=== PATIENT | female | born 1940 | race Caucasian/White ===

== ENCOUNTER 2023-06-19 19:22 | Emergency (ER) | payer MEDICARE, SELFPAY ==
[2023-06-19 19:24] VITALS: BP 116/84
[2023-06-19 19:37] VITALS: BMI 19.1
[2023-06-19 19:46] VITALS: BP 145/92
[2023-06-19 20:00] VITALS: BP 138/101
--- NOTE | 2023-06-19 20:09 | ED.SKININJ ---
HPI-Injury
<JOHNNY Mckeon - Last Filed: 06/20/23 03:03>
General
Chief Complaint: Skin Surface Trauma
Source: patient
Exam Limitations: none
Time Seen by Provider: 06/19/23 19:32
Travel History
Have you had any contact with someone who has COVID-19?: No
Do you have any symptoms of coronavirus? Fever > 100 degrees, chills, cough, shortness of breath, sore throat, loss of taste or smell, muscle aches, or headache?: No
History of Present Illness-Injury
Is this injury a work related problem?: No
Is pt an associate of [facility]?: No
Initial Injury comments:
This is a 83 year old female that comes in with c/o laceration to the right lower leg. States that the bifold doors came off it track and the door came down on the right lower leg. States that she did not fall and she did not hit her head or have
any LOC. Denies any fever, chills, chest pain, SOB, abd pain, nausea, vomiting, diarrhea, headache, dizziness, urinary burning.
Past History
<JOHNNY Mckeon - Last Filed: 06/20/23 03:03>
Past History
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
ED Past Surgical History: Cardiac (Ablation), Tonsilectomy and Other (Breast lumpectomy right)
Social History
Tobacco: Non-smoker
Alcohol: Occasional
Personal:
Living: alone
Employment: Retired
Review of Systems
<JOHNNY Mckeon - Last Filed: 06/20/23 03:03>
Review of Systems
All Other Systems: ROS reviewed and negative except as documented in HPI and ROS
Constitutional: Reports no symptoms; Denies fever or chills
EENT: Reports no symptoms
Respiratory: Denies cough or trouble breathing
Cardiac: Reports no symptoms; Denies chest pain
ABD/GI: Reports no symptoms; Denies abdominal pain, nausea, vomiting or diarrhea
: Reports no symptoms; Denies dysuria, frequency or urgency
Musculoskeletal: Reports no symptoms
Skin: Reports no symptoms
Neurological: Reports no symptoms; Denies dizzy or headache
Psychiatric: Reports no symptoms
Skin Exam
<JOHNNY Mckeon - Last Filed: 06/20/23 03:03>
Laceration
Right Lower Anterior Leg:
Length in cm: 10 (10.25 X 8.5)
Orientation: vertical
Any active bleeding?: low grade venous oozing
Distal skin color and temperature: normal-warm & good color
Normal distal neurovascular exam: Yes
Range of motion: full
Phy Exam
<JOHNNY Mckeon - Last Filed: 06/20/23 03:03>
General Physical Exam
General Presentation: well appearing and no apparent distress
General age: appears stated age
General Skin: warm and dry
General Habitus: elderly
General Mental: alert
General Hydration: appears well hydrated
Eye Exam
Eye Exam: EOMI
Musculoskeletal Exam
Musculoskeletal Exam: full ROM and no edema
Skin Exam
Skin Exam: normal color, warm/dry, no rash, no petechia and other (Large laceration/skin tear of the right lower leg with adipose tissue exposed, Fascia appears intact. )
Psychiatric Exam
Psychiatric Exam: normal mood/affect
Course
<JOHNNY Mckeon - Last Filed: 06/20/23 03:03>
Orders/Labs/Results
Orders:
Orders
06/19/23 20:08
Morphine Sulfate 2 mg IV NOW STA
06/19/23 20:09
Tetanus/Diphth/Acelpertussis [Adacel] 0.5 ml IM .ONCE ONE
06/19/23 20:10
Ondansetron Injectable [Zofran] 4 mg .ROUTE .STK-MED ONE
06/19/23 20:12
Ondansetron Injectable [Zofran] 4 mg IV NOW STA
06/19/23 20:24
Doxycycline [Vibramycin] 100 mg PO NOW STA
Vital Signs
Initial and Last Documented VS:
Initial Vital Signs
Temp Pulse Resp BP Pulse Ox
98.3 F 84 24 116/84 96
06/19/23 19:24 06/19/23 19:24 06/19/23 19:24 06/19/23 19:24 06/19/23 19:24
Last Documented Vital Signs
Temp Pulse Resp BP Pulse Ox
98.3 F 78 21 150/90 98
06/19/23 19:24 06/19/23 21:51 06/19/23 21:51 06/19/23 21:51 06/19/23 21:51
<Hieu Silverman, DO - Last Filed: 06/19/23 20:48>
Orders/Labs/Results
Orders:
Orders
06/19/23 20:08
Morphine Sulfate 2 mg IV NOW STA
06/19/23 20:09
Tetanus/Diphth/Acelpertussis [Adacel] 0.5 ml IM .ONCE ONE
06/19/23 20:10
Ondansetron Injectable [Zofran] 4 mg .ROUTE .STK-MED ONE
06/19/23 20:12
Ondansetron Injectable [Zofran] 4 mg IV NOW STA
06/19/23 20:24
Doxycycline [Vibramycin] 100 mg PO NOW STA
Vital Signs
Initial and Last Documented VS:
Initial Vital Signs
Temp Pulse Resp BP Pulse Ox
98.3 F 84 24 116/84 96
06/19/23 19:24 06/19/23 19:24 06/19/23 19:24 06/19/23 19:24 06/19/23 19:24
Last Documented Vital Signs
Temp Pulse Resp BP Pulse Ox
98.3 F 78 21 150/90 98
06/19/23 19:24 06/19/23 21:51 06/19/23 21:51 06/19/23 21:51 06/19/23 21:51
<JOHNNY Mckeon - Last Filed: 06/20/23 03:03>
MDM/Problems Addressed
Differential Diagnosis Includes:
laceration/skin tear
MDM/Problems Addressed:
This is a 83 year old female that had a door fall on the right lower leg.
Explained to patient that her skin is so thin that this can't be sutured as it would continue to rip. This was also seen by Dr. Silverman. Will have patient follow up at the wound care center for further evaluation and treatment. Patient will be given
something for pain a Adacel injection. Patient will use Tylenol 1000mg every 6 hour for pain.
Chronic conditions affecting care:
NA
Acute Exacerbation and/or Progression of Chronic Illness:
NA
<JOHNNY Mckeon - Last Filed: 06/20/23 03:03>
*Pulse Oximetry
Patient hypoxic: no
*EKG
Interpreted by ED Provider?: NA
Rate: EKG- N/A
*Entry Level Electrician Interpretation
Rate: Entry Level Electrician- N/A
*Critical Care Note
Total Time (30-74mins, 75-104mins- exclusive of procedures): Not Applicable
ED Attending Note
<JOHNNY Mckeon - Last Filed: 06/20/23 03:03>
-
Portions of this chart may have been created with voice recognition software.� Occasional wrong word or��sound alike� substitutions may have occurred due to the inherent limitations of voice recognition software.
<Hieu Silverman, DO - Last Filed: 06/19/23 20:48>
ED Attending Note
Patient seen and examined by attending physician: Yes
I performed the substantive portion of visit, reviewed & personally made and approve the management plan that is documented in note by myself or BERNADETTE.: Yes
ED Attending Note:
I have seen and evaluated the patient with a [id number] encounter. I have spoken to the advance practicer provider and involved in the medical history, the physical exam, medical decision making.
Evaluation and management service: agree unless noted differently below.
Results interpretation: agree unless noted differently below.
Focused HPI: 83-year-old female presenting for evaluation of trauma to her right leg. She states a door fell on her right leg.
Physical exam: Large skin avulsion and laceration to anterior right lateral leg. No bony tenderness. Distal extremity neurovascular intact
Medical Decision Making: Due to the very thin skin, she is not a candidate for suturing. Will perform local wound care and have her follow-up with wound care
Discharge Plan
Departure
Patient Disposition: Home (Routine Discharge)
Date of Disposition: 06/19/23
Time of Disposition: 20:21
Patient with high blood pressure during this ER visit?: No
Condition: Good
Covid-19: Not Applicable
Discharge Problem:
Laceration of right lower extremity
Instructions: Wound Care (DC)
Prescriptions:
New
doxycycline hyclate 100 mg capsule
100 mg PO BID Qty: 19 0RF
No Action
calcium citrate-vitamin D3 [Calcium Citrate + D] 1 EACH tablet
1 tab PO DAILY
multivitamin with folic acid [Tab-A-Alannah] 1 TABLET tablet
1 tab PO DAILY
amiodarone 200 mg tablet
200 mg PO QPM
acetaminophen [Tylenol] 325 mg Tablet
650 mg PO Q4HPRN PRN (Reason: mild pain)
atorvastatin 20 mg tablet
20 mg PO QPM
Eliquis 2.5 mg tablet
2.5 mg PO BID
Prevagen
1 cap PO DAILY
sulfamethoxazole-trimethoprim [Bactrim DS] 800-160 mg tablet
1 tab PO BID Qty: 6 0RF
Referrals:
[facility] [Active [facility]] - Tomorrow
Activity Restrictions/Additional Instructions:
As discussed, this laceration is more like a skin tear that has gone into the adipose tissue. Your skin is to thin to be sutured as it will continue to rip. PLEASE FOLLOW UP IN THE WOUND CARE CENTER TOMORROW IF POSSIBLE. PLEASE CALL THE WOUND CARE
CENTER TOMORROW. You have been given your first dose of antibiotic here and a prescription has been sent to your Pharmacy. IF YOU HAVE ANY REDNESS, FEVER, OR YOU HAVE ANY OTHER CONCERNS PLEASE RETURN TO THE EMERGENCY ROOM
Interventions
Interventions:
*Risk Screen - Suicide Last Done: 06/19/23 19:24
*General Assessment Last Done: 06/19/23 19:37
*Neglect/Abuse Screening Last Done: 06/19/23 19:24
ED- Fall Risk Assessment Last Done: 06/19/23 19:37
*ED COVID-19 Vaccine History Last Done: 06/19/23 19:37
*Nursing Disposition Last Done: 06/19/23 21:51
ED-Skin Assessment Last Done: 06/19/23 19:37
Discharge Date and Time
Discharge Date/Time: 06/19/23 21:00
[2023-06-19] MEDS: ZOFRAN 4 MG IV (20:12)
[2023-06-19] MEDS: MORPHINE SULFATE 2 MG IV (20:14)
[2023-06-19] MEDS: ADACEL 0.5 ML IM (20:15)
[2023-06-19] MEDS: VIBRAMYCIN 100 MG PO (20:42)
[2023-06-19 21:51] VITALS: BP 150/90
== END 2023-06-19 21:00 | disposition home or self-care (01) ==
LOC: EMR 19:22
PROVIDERS: EMERGENCY PHYSICIAN Student in an Organized Health Care Education/Training Program; FAMILY PHYSICIAN Family Medicine
DX: S81.811A Laceration without foreign body, right lower leg, initial encounter (principal); W20.8XXA Other cause of strike by thrown, projected or falling object, initial encounter
CPT/HCPCS: 99284; 96374; 96375; 90471; 90715

== ENCOUNTER → 2023-06-23 08:31 | Outpatient (REF) | payer MEDICARE, SELFPAY | LOC: WOUND 08:31 | PROVIDERS: ATTENDING PHYSICIAN Surgery; FAMILY PHYSICIAN Family Medicine | DX: S81.811A Laceration without foreign body, right lower leg, initial encounter (principal); L97.811 Non-pressure chronic ulcer of other part of right lower leg limited to breakdown of skin; Z79.01 Long term (current) use of anticoagulants; I48.19 Other persistent atrial fibrillation; N18.32 Chronic kidney disease, stage 3b; I49.5 Sick sinus syndrome; X58.XXXA Exposure to other specified factors, initial encounter | CPT/HCPCS: 99203 ==

== ENCOUNTER → 2023-06-30 09:55 | Outpatient (REF) | payer MEDICARE, SELFPAY | LOC: WOUND 09:55 | PROVIDERS: ATTENDING PHYSICIAN Surgery; FAMILY PHYSICIAN Family Medicine | DX: N18.32 Chronic kidney disease, stage 3b (principal); S81.811A Laceration without foreign body, right lower leg, initial encounter; L97.812 Non-pressure chronic ulcer of other part of right lower leg with fat layer exposed; Z79.01 Long term (current) use of anticoagulants; I48.19 Other persistent atrial fibrillation; I49.5 Sick sinus syndrome; X58.XXXA Exposure to other specified factors, initial encounter | CPT/HCPCS: 11042; 11045 ==

== ENCOUNTER → 2023-07-07 09:28 | Outpatient (REF) | payer MEDICARE, SELFPAY | LOC: WOUND 09:28 | PROVIDERS: ATTENDING PHYSICIAN Surgery; FAMILY PHYSICIAN Family Medicine | DX: S81.811A Laceration without foreign body, right lower leg, initial encounter (principal); L97.812 Non-pressure chronic ulcer of other part of right lower leg with fat layer exposed; Z79.01 Long term (current) use of anticoagulants; I48.19 Other persistent atrial fibrillation; N18.32 Chronic kidney disease, stage 3b; I49.5 Sick sinus syndrome | CPT/HCPCS: 11042; 11045 ==

== ENCOUNTER → 2023-07-14 09:30 | Outpatient (REF) | payer MEDICARE, SELFPAY | LOC: WOUND 09:30 | PROVIDERS: ATTENDING PHYSICIAN Surgery; FAMILY PHYSICIAN Family Medicine | DX: S81.811A Laceration without foreign body, right lower leg, initial encounter (principal); L97.812 Non-pressure chronic ulcer of other part of right lower leg with fat layer exposed; I48.19 Other persistent atrial fibrillation; N18.32 Chronic kidney disease, stage 3b; I49.5 Sick sinus syndrome; X58.XXXA Exposure to other specified factors, initial encounter; Z79.01 Long term (current) use of anticoagulants | CPT/HCPCS: 99212 ==

== ENCOUNTER → 2023-07-21 09:28 | Outpatient (REF) | payer MEDICARE, SELFPAY | LOC: WOUND 09:28 | PROVIDERS: ATTENDING PHYSICIAN Surgery; FAMILY PHYSICIAN Family Medicine | DX: S81.811A Laceration without foreign body, right lower leg, initial encounter (principal); L97.812 Non-pressure chronic ulcer of other part of right lower leg with fat layer exposed; Z79.01 Long term (current) use of anticoagulants; I48.19 Other persistent atrial fibrillation; N18.32 Chronic kidney disease, stage 3b; I49.5 Sick sinus syndrome; W20.8XXA Other cause of strike by thrown, projected or falling object, initial encounter | CPT/HCPCS: 11042; 11045 ==

== ENCOUNTER → 2023-07-28 09:27 | Outpatient (REF) | payer MEDICARE, SELFPAY | LOC: WOUND 09:27 | PROVIDERS: ATTENDING PHYSICIAN Surgery; FAMILY PHYSICIAN Family Medicine | DX: S81.811A Laceration without foreign body, right lower leg, initial encounter (principal); L97.812 Non-pressure chronic ulcer of other part of right lower leg with fat layer exposed; I48.19 Other persistent atrial fibrillation; N18.32 Chronic kidney disease, stage 3b; I49.5 Sick sinus syndrome; W20.8XXA Other cause of strike by thrown, projected or falling object, initial encounter | CPT/HCPCS: 11042; 11045 ==

== ENCOUNTER → 2023-08-04 09:58 | Outpatient (REF) | payer MEDICARE, SELFPAY | LOC: WOUND 09:58 | PROVIDERS: ATTENDING PHYSICIAN Surgery; FAMILY PHYSICIAN Family Medicine | DX: L97.812 Non-pressure chronic ulcer of other part of right lower leg with fat layer exposed (principal); I48.19 Other persistent atrial fibrillation; S81.811A Laceration without foreign body, right lower leg, initial encounter; N18.32 Chronic kidney disease, stage 3b; I49.5 Sick sinus syndrome; W20.8XXA Other cause of strike by thrown, projected or falling object, initial encounter | CPT/HCPCS: 11042; 11045 ==

== ENCOUNTER → 2023-08-18 09:26 | Outpatient (REF) | payer MEDICARE, SELFPAY | LOC: WOUND 09:26 | PROVIDERS: ATTENDING PHYSICIAN Surgery; FAMILY PHYSICIAN Family Medicine | DX: S81.811A Laceration without foreign body, right lower leg, initial encounter (principal); L97.812 Non-pressure chronic ulcer of other part of right lower leg with fat layer exposed; I48.19 Other persistent atrial fibrillation; N18.32 Chronic kidney disease, stage 3b; I49.5 Sick sinus syndrome; W20.8XXA Other cause of strike by thrown, projected or falling object, initial encounter | CPT/HCPCS: 11042; 11045 ==

== ENCOUNTER → 2023-08-25 09:29 | Outpatient (REF) | payer MEDICARE, SELFPAY | LOC: WOUND 09:29 | PROVIDERS: ATTENDING PHYSICIAN Surgery; FAMILY PHYSICIAN Family Medicine | DX: S81.811A Laceration without foreign body, right lower leg, initial encounter (principal); L97.812 Non-pressure chronic ulcer of other part of right lower leg with fat layer exposed; I48.19 Other persistent atrial fibrillation; N18.32 Chronic kidney disease, stage 3b; L49 Exfoliation due to erythematous conditions according to extent of body surface involved; Z79.01 Long term (current) use of anticoagulants; W20.8XXA Other cause of strike by thrown, projected or falling object, initial encounter | CPT/HCPCS: 11042 ==

== ENCOUNTER 2023-08-30 14:30 | Emergency (ER) | payer MEDICARE, SELFPAY ==
[2023-08-30 14:35] VITALS: BP 115/71
[2023-08-30 14:36] VITALS: BP 115/71
[2023-08-30 14:45] VITALS: BMI 19.1
[2023-08-30 15:00] VITALS: BP 112/74
--- NOTE | 2023-08-30 15:16 | ED.GENMED ---
History of Present Illness
General
Chief Complaint: Fall
Source: patient
Exam Limitations: none
Time Seen by Provider: 08/30/23 14:32
Nursing documentation reviewed up to this point in time: agreed with
Travel History
Have you had any contact with someone who has COVID-19?: No
Do you have any symptoms of coronavirus? Fever > 100 degrees, chills, cough, shortness of breath, sore throat, loss of taste or smell, muscle aches, or headache?: No
History of Present Illness
History of Present Illness:
Patient is a 83-year-old female brought to the ER by EMS. MES reported that pts Blood sugar was 271 (she is not a diabetic ) Patient presents to the ED awake alert oriented x3 in no acute distress able to give full history.
she reports about 11 AM she was taken to walk outside of her house and slipped and fell landing in mud. She denies loss of consciousness. she denies any her head she reports her neighbor saw her and called EMS. She denies headache , denies nausea
/vomiting. She tells me she did land on her knees but denies knee pain.
Daughter at bedside reports she just wanted her to get evaluated. She reports pt is at baseline behavior.
Past History
Past History
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
ED Past Surgical History: Cardiac (Ablation), Tonsilectomy and Other (Breast lumpectomy right)
Social History
Tobacco: Non-smoker
Alcohol: Occasional
Personal:
Living: alone
Employment: Retired
Review of Systems
Review of Systems
Allergies reviewed?: Yes
All Other Systems: ROS reviewed and negative except as documented in HPI and ROS
Constitutional: Reports no symptoms; Denies fever, fatigue or chills
EENT: Reports no symptoms
Respiratory: Reports no symptoms; Denies trouble breathing
Cardiac: Reports no symptoms
ABD/GI: Reports no symptoms; Denies nausea or vomiting
Phy Exam
General Physical Exam
General Presentation: no apparent distress
General age: appears stated age
General Skin: warm and dry
General Habitus: elderly
General Mental: alert
Cardiovascular Exam
Cardiovascular Exam: no murmur and irregularly irregular
Pulmonary Exam
Pulmonary Exam: lungs clear
Neurological Exam
Neurological Exam: alert and oriented x3
Pop Coma Scale
Eye Opening: Spontaneous
Verbal Response: Oriented
Motor Response: Obeys Commands
GCS Total Score: 15
Musculoskeletal Exam
Musculoskeletal Exam: full ROM
Skin Exam
Skin Exam: normal color and warm/dry
Psychiatric Exam
Psychiatric Exam: normal mood/affect
Course
Orders/Labs/Results
Orders:
Orders
08/30/23 15:01
CT Head W/o Iv Contrast Urgent
Comment:
Reason For Exam: trauma
08/30/23 15:02
CT Cervical Spine W/o Iv Contr Urgent
Comment:
Reason For Exam: trauma
08/30/23 15:46
Complete Blood Count/With Diff Urgent
Comprehensive Metabolic Panel Urgent
Abnormal Lab Results
08/30/23 08/30/23
15:41 15:46
RBC 3.83 L 10^6/uL
(4.20-5.40)
Hgb 11.7 L g/dL
(12.0-16.0)
Hct 35.5 L %
(37.0-47.0)
MPV 12.3 H fL
(7.4-10.4)
Absolute Lymphs (auto) 0.7 L 10^3/uL
(1.2-3.4)
Immature Gran % 0.7 H %
(0-0.5)
Neutrophils % 82.0 H %
(42.2-75.2)
Lymphocytes % 11.4 L %
(20.5-51.1)
BUN 25 H mg/dl
(7-17)
Creatinine 1.3 H mg/dL
(0.6-1.0)
Glucose 136 H mg/dl
(70-99)
AST 46 H U/L
(14-36)
Total Protein 6.0 L g/dl
(6.3-8.2)
POC Glucose 120 H mg/dl
(70-99)
08/30/23 15:46
08/30/23 15:46
Vital Signs
Initial and Last Documented VS:
Initial Vital Signs
Temp Pulse Resp BP Pulse Ox
97.6 F 74 19 115/71 96
08/30/23 14:36 08/30/23 14:36 08/30/23 14:36 08/30/23 14:36 08/30/23 14:36
Last Documented Vital Signs
Temp Pulse Resp BP Pulse Ox
97.6 F 74 19 115/71 96
08/30/23 14:36 08/30/23 14:36 08/30/23 14:36 08/30/23 14:36 08/30/23 14:36
MDM/Problems Addressed
Differential Diagnosis Includes:
not limited to: mechanical fall possible head injury
MDM/Problems Addressed:
83 yr old female presents to the ER for evaluation. Patient was outside at 11 AM and describes mechanical fall while she was walking. She denies hitting her head she is on blood thinners. Daughter initially wanted patient evaluated. Pt on
arrival had no complaints she denies fever head denies neck and back pain. She reports she landed on her knees however there is no obvious injury. It was reported the patient's blood sugar was apparently 270 by EMS she is not diabetic. Accu-Chek
here showed blood sugar 120. Basic labs were checked. Patient is afebrile stable vital signs nontachycardic awake alert no acute distress with a normal white count stable hemoglobin 11.7. BUN 25 creatinine 1.3. Patient's vital signs are stable
and she is in stable controlled A-fib which is normal for her as per daughter.
Patient does not want the CAT scan of her head stating that she has not hit her head. Daughter agrees and does not want patient to have a CAT scan. Patient is in no acute distress neurologically intact no complaints of headache. At baseline as
per daughter this is reasonable. She is on Eliquis I did review if she had hit her head risks of this. Daughter patient were instructed on concerning symptoms and what to return for.
Patient describes mechanical fall she is stable will dc home.
Chronic conditions affecting care:
A-fib on Eliquis
*Pulse Oximetry
Patient hypoxic: no
*Critical Care Note
Total Time (30-74mins, 75-104mins- exclusive of procedures): Not Applicable
ED Attending Note
-
Portions of this chart may have been created with voice recognition software.� Occasional wrong word or��sound alike� substitutions may have occurred due to the inherent limitations of voice recognition software.
Discharge Plan
Departure
Patient Disposition: Home (Routine Discharge)
Date of Disposition: 08/30/23
Time of Disposition: 17:08
Patient with high blood pressure during this ER visit?: No
Condition: Fair
Covid-19: Not Applicable
Discharge Problem:
Fall
Instructions: Preventing falls in adults
Prescriptions:
No Action
calcium citrate-vitamin D3 [Calcium Citrate + D] 1 EACH tablet
1 tab PO DAILY
multivitamin with folic acid [Tab-A-Alannah] 1 TABLET tablet
1 tab PO DAILY
amiodarone 200 mg tablet
200 mg PO QPM
acetaminophen [Tylenol] 325 mg Tablet
650 mg PO Q4HPRN PRN (Reason: mild pain)
atorvastatin 20 mg tablet
20 mg PO QPM
Eliquis 2.5 mg tablet
2.5 mg PO BID
Prevagen
1 cap PO DAILY
sulfamethoxazole-trimethoprim [Bactrim DS] 800-160 mg tablet
1 tab PO BID Qty: 6 0RF
doxycycline hyclate 100 mg capsule
100 mg PO BID Qty: 19 0RF
Referrals:
Jenny Walker, [Family Provider] -
Activity Restrictions/Additional Instructions:
Follow-up with your family doctor in the next several days for reevaluation. You were mildly dehydrated based on your labs, please increase water intake. Return if any worsening of symptoms of headaches nausea vomiting decreased or change in
behavior difficulty walking balance issues or any further concerns
Interventions
Interventions:
*General Assessment Last Done: 08/30/23 14:38
*ED COVID-19 Vaccine History Last Done: 08/30/23 14:38
ED-Musculoskeletal Assessment Last Done: 08/30/23 14:40
ED- Neurological Assessment Last Done: 08/30/23 14:39
ED-Skin Assessment Last Done: 08/30/23 14:40
Discharge Date and Time
Print Language: DIVEHI
[2023-08-30 15:44] LABS: Glucose - Point of Care 120 mg/dl (70-99)
[2023-08-30 16:00] VITALS: BP 128/84
[2023-08-30 16:04] LABS: % Basophils 0.7 % (0-2); % Eosinophils 0.5 % (0-6); % Immature Granulocytes 0.7 % (0-0.5); % Lymphocytes 11.4 % (20.5-51.1); % Monocytes 4.7 % (1.7-9.3); Absolute Lymphocytes 0.7 10^3/uL (1.2-3.4); Absolute Monocytes 0.3 10^3/uL (0.1-0.6); Hematocrit 35.5 % (37.0-47.0); Hemoglobin 11.7 g/dL (12.0-16.0); Mean Corpuscular Hgb 30.5 pg (27.0-31.0); Mean Corpuscular Volume 92.7 fL (81.0-99.0); Mean Platelet Volume 12.3 fL (7.4-10.4); Nucleated Red Blood Cells % 0 %; Platelet Count 183 10^3/uL (130-400); Red Blood Cell Count 3.83 10^6/uL (4.20-5.40); Red Cell Dist. Width 12.9 % (11.5-14.5); White Blood Cell Count 6.1 10^3/uL (4.8-10.8)
[2023-08-30 16:18] LABS: ALT (SGPT) 21 U/L (0-35); AST (SGOT) 46 U/L (14-36); Albumin 3.5 g/dl (3.5-5.0); Alkaline Phosphatase 77 U/L (38-126); Blood Urea Nitrogen 25 mg/dl (7-17); Calcium 10.1 mg/dl (8.4-10.2); Carbon Dioxide 24 mmol/L (22-30); Chloride 107 mmol/L (98-107); Estimated Creatinine Clearance 27 ml/min; Glucose 136 mg/dl (70-99); Potassium 3.9 mmol/L (3.5-5.1); Sodium 137 mmol/L (135-145)
[2023-08-30 17:00] VITALS: BP 146/72
== END 2023-08-30 18:11 | disposition home or self-care (01) ==
LOC: EMR 14:30
PROVIDERS: Nurse Practitioner; EMERGENCY PHYSICIAN Emergency Medicine; FAMILY PHYSICIAN Family Medicine
DX: Z04.3 Encounter for examination and observation following other accident (principal); W01.0XXA Fall on same level from slipping, tripping and stumbling without subsequent striking against object, initial encounter; I48.91 Unspecified atrial fibrillation; Z79.01 Long term (current) use of anticoagulants
CPT/HCPCS: 99283; 80053; 82962; 85025

== ENCOUNTER → 2023-09-01 09:57 | Outpatient (REF) | payer MEDICARE, SELFPAY | LOC: WOUND 09:57 | PROVIDERS: ATTENDING PHYSICIAN Surgery; FAMILY PHYSICIAN Family Medicine | DX: S81.811A Laceration without foreign body, right lower leg, initial encounter (principal); X58.XXXA Exposure to other specified factors, initial encounter; L97.812 Non-pressure chronic ulcer of other part of right lower leg with fat layer exposed; Z79.01 Long term (current) use of anticoagulants; I48.19 Other persistent atrial fibrillation; N18.32 Chronic kidney disease, stage 3b; I49.5 Sick sinus syndrome | CPT/HCPCS: 17250; 99213 ==

== ENCOUNTER → 2023-09-22 09:02 | Outpatient (REF) | payer MEDICARE, SELFPAY | LOC: WOUND 09:02 | PROVIDERS: ATTENDING PHYSICIAN Surgery; FAMILY PHYSICIAN Family Medicine | DX: S81.811A Laceration without foreign body, right lower leg, initial encounter (principal); L97.812 Non-pressure chronic ulcer of other part of right lower leg with fat layer exposed; I48.19 Other persistent atrial fibrillation; N18.32 Chronic kidney disease, stage 3b; L49 Exfoliation due to erythematous conditions according to extent of body surface involved; Z79.01 Long term (current) use of anticoagulants; W20.8XXA Other cause of strike by thrown, projected or falling object, initial encounter | CPT/HCPCS: 99212 ==

== ENCOUNTER 2023-10-24 16:58 | Emergency (ER) | payer MEDICARE, SELFPAY ==
[2023-10-24 17:01] VITALS: BP 118/71
[2023-10-24 17:08] VITALS: BMI 19.1
[2023-10-24 17:31] LABS: % Basophils 0.4 % (0-2); % Eosinophils 0.8 % (0-6); % Immature Granulocytes 0.2 % (0-0.5); % Lymphocytes 16.9 % (20.5-51.1); % Neutrophils 75.7 % (42.2-75.2); Absolute Lymphocytes 0.8 10^3/uL (1.2-3.4); Absolute Monocytes 0.3 10^3/uL (0.1-0.6); Absolute Neutrophils 3.8 10^3/uL (1.4-6.5); Hematocrit 33.6 % (37.0-47.0); Hemoglobin 11.3 g/dL (12.0-16.0); Mean Corp Hgb Conc. 33.6 g/dL (33.0-37.0); Mean Corpuscular Hgb 30.6 pg (27.0-31.0); Mean Corpuscular Volume 91.1 fL (81.0-99.0); Mean Platelet Volume 12.6 fL (7.4-10.4); Nucleated Red Blood Cells % 0 %; Platelet Count 129 10^3/uL (130-400); Red Blood Cell Count 3.69 10^6/uL (4.20-5.40); Red Cell Dist. Width 13.4 % (11.5-14.5)
[2023-10-24 17:33] LABS: ALT (SGPT) 24 U/L (0-35); AST (SGOT) 38 U/L (14-36); Albumin 3.3 g/dl (3.5-5.0); Alkaline Phosphatase 67 U/L (38-126); Blood Urea Nitrogen 24 mg/dl (7-17); Calcium 9.8 mg/dl (8.4-10.2); Carbon Dioxide 24 mmol/L (22-30); Chloride 108 mmol/L (98-107); Estimated Creatinine Clearance 29 ml/min; Glucose 115 mg/dl (70-99); Potassium 3.6 mmol/L (3.5-5.1); Sodium 138 mmol/L (135-145); Total Bilirubin 0.9 mg/dl (0.2-1.3); Total Protein 5.7 g/dl (6.3-8.2); eGFR 44.36
[2023-10-24 17:42] LABS: Troponin I < 0.012 ng/ml
[2023-10-24] MEDS: LET TOPICAL ANESTHETIC GEL 3 ML TOPICAL (17:47)
[2023-10-24 18:01] VITALS: BP 145/80
--- NOTE | 2023-10-24 18:43 | ED.GENMED ---
History of Present Illness
General
Chief Complaint: Fainting/Passed Out
Time Seen by Provider: 10/24/23 17:09
Travel History
Have you had any contact with someone who has COVID-19?: No
Do you have any symptoms of coronavirus? Fever > 100 degrees, chills, cough, shortness of breath, sore throat, loss of taste or smell, muscle aches, or headache?: No
History of Present Illness
History of Present Illness:
83-year-old female with history of dementia presents to the emergency department via EMS for evaluation after multiple syncopal events. Patient is known to wander during walks, her daughter is not sure when she left the house this morning. She
apparently was seen to have a syncopal event, her neighbor apparently saw her appearing dazed and leaning against her car and when she went to the sister she had a syncopal event and was assisted to the ground., upon arrival of EMS was assisted to
standing where she syncopized once again. On arrival the patient denies any complaints. She cannot give any details of when she left her home to begin her walk today.
Past History
Past History
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
ED Past Surgical History: Cardiac (Ablation), Tonsilectomy and Other (Breast lumpectomy right)
Social History
Tobacco: Non-smoker
Alcohol: Occasional
Personal:
Living: alone
Employment: Retired
Review of Systems
Review of Systems
Allergies reviewed?: Yes
All Other Systems: ROS reviewed and negative except as documented in HPI and ROS
Phy Exam
Physical Exam
Physical Exam:
GEN: Well appearing, NAD, WDWN
HEENT: Normocephalic and atraumatic, oral mucosa moist, no scleral icterus, no nasal congestion
Cardiac: Regular rate
Lung: No respiratory distress, no tachypnea
MSK: No gross deformity or injuries
Skin: Good color, no pallor or jaundice, no rashes
Neuro: AO x3; CN II-XII grossly intact. BUE strength 5/5 in all estrada, sensation intact and symmetric. BLE strength 5/5 in all estrada, sensation intact and symmetric
Psych: Calm, cooperative
Course
Orders/Labs/Results
Orders:
Orders
10/24/23 17:06
Electrocardiogram (*1) Urgent
Reason for Study: Syncope
10/24/23 17:07
EKG- Treatment ONCE
10/24/23 17:12
Complete Blood Count/With Diff Routine
Comprehensive Metabolic Panel Urgent
Troponin I Urgent
10/24/23 17:38
Lidocaine/Epinephrine/Tetracai [Let Topical Anesthetic Gel] 3 ml TOPICAL NOW STA
Abnormal Lab Results
10/24/23
17:12
RBC 3.69 L 10^6/uL
(4.20-5.40)
Hgb 11.3 L g/dL
(12.0-16.0)
Hct 33.6 L %
(37.0-47.0)
Plt Count 129 L 10^3/uL
(130-400)
MPV 12.6 H fL
(7.4-10.4)
Absolute Lymphs (auto) 0.8 L 10^3/uL
(1.2-3.4)
Neutrophils % 75.7 H %
(42.2-75.2)
Lymphocytes % 16.9 L %
(20.5-51.1)
Chloride 108 H mmol/L
(98-107)
BUN 24 H mg/dl
(7-17)
Creatinine 1.2 H mg/dL
(0.6-1.0)
Glucose 115 H mg/dl
(70-99)
AST 38 H U/L
(14-36)
Total Protein 5.7 L g/dl
(6.3-8.2)
Albumin 3.3 L g/dl
(3.5-5.0)
10/24/23 17:12
10/24/23 17:12
Vital Signs
Initial and Last Documented VS:
Initial Vital Signs
Temp Pulse Resp BP Pulse Ox
97.6 F 75 18 118/71 97
10/24/23 17:01 10/24/23 17:01 10/24/23 17:01 10/24/23 17:01 10/24/23 17:01
Last Documented Vital Signs
Temp Pulse Resp BP Pulse Ox
97.6 F 71 19 145/80 100
10/24/23 17:01 10/24/23 18:45 10/24/23 18:45 10/24/23 18:01 10/24/23 18:45
MDM/Problems Addressed
MDM/Problems Addressed:
Patient appears well with no abnormal neurologic findings on exam, no focal signs of head trauma. Likely syncope secondary to poor fluid intake and heat exposure given her advanced age. She was rehydrated in the emergency department and her
daughter is comfortable taking her home
Comment
Comment:
EKG independently interpreted shows atrial fibrillation at a rate of [address] depressions laterally
*Critical Care Note
Total Time (30-74mins, 75-104mins- exclusive of procedures): Not Applicable
ED Attending Note
-
Portions of this chart may have been created with voice recognition software.� Occasional wrong word or��sound alike� substitutions may have occurred due to the inherent limitations of voice recognition software.
Discharge Plan
Departure
Patient Disposition: Home (Routine Discharge)
Date of Disposition: 10/24/23
Time of Disposition: 18:43
Patient with high blood pressure during this ER visit?: No
Discharge Problem:
Syncope, Heat exposure, Laceration of leg, right
Instructions: Syncope (Fainting) (DC), Wound Care ED
Prescriptions:
No Action
calcium citrate-vitamin D3 [Calcium Citrate + D] 1 EACH tablet
1 tab PO DAILY
multivitamin with folic acid [Tab-A-Alannah] 1 TABLET tablet
1 tab PO DAILY
amiodarone 200 mg tablet
200 mg PO QPM
acetaminophen [Tylenol] 325 mg Tablet
650 mg PO Q4HPRN PRN (Reason: mild pain)
atorvastatin 20 mg tablet
20 mg PO QPM
Eliquis 2.5 mg tablet
2.5 mg PO BID
Prevagen
1 cap PO DAILY
sulfamethoxazole-trimethoprim [Bactrim DS] 800-160 mg tablet
1 tab PO BID Qty: 6 0RF
doxycycline hyclate 100 mg capsule
100 mg PO BID Qty: 19 0RF
Referrals:
UNKNOWN - PT DOES,NOT KNOW [Family Provider] -
Activity Restrictions/Additional Instructions:
Keep wound dry for 24 hours, then you may gently get the area wet to clean it
Please follow up with wound care as needed
Interventions
Interventions:
*Risk Screen - Suicide Last Done: 10/24/23 17:08
*General Assessment Last Done: 10/24/23 17:08
*Neglect/Abuse Screening Last Done: 10/24/23 17:08
ED- Fall Risk Assessment Last Done: 10/24/23 17:10
*ED COVID-19 Vaccine History Last Done: 10/24/23 17:08
*Nursing Disposition Last Done: 10/24/23 18:52
ED- Cardiac Assessment Last Done: 10/24/23 17:10
ED- Neurological Assessment Last Done: 10/24/23 17:10
Discharge Date and Time
Discharge Date/Time: 10/24/23 18:52
Print Language: CITIZEN OF [place]
== END 2023-10-24 18:52 | disposition home or self-care (01) ==
LOC: EMR 16:58
PROVIDERS: EMERGENCY PHYSICIAN Emergency Medicine
DX: R55 Syncope and collapse (principal); S81.811A Laceration without foreign body, right lower leg, initial encounter; X30.XXXA Exposure to excessive natural heat, initial encounter
CPT/HCPCS: 99284; 80053; 84484; 85025; 93005